=== PATIENT | male | born 1980 | race Caucasian/White ===

== ENCOUNTER 2022-09-02 10:45 | Emergency (ER) | payer OTHER ==
[2022-09-02] MEDS ORDERED: Ondansetron 4 MG Tab.DIS PO ONE (12:29)
[2022-09-02 12:43] LABS: HEMATOCRIT 44.8 % (38.4-49.7); HEMOGLOBIN 15.6 g/dL (12.9-16.9); MEAN CORPUSCULAR HEMOGLOBIN 29.3 pg (31.6-35.5); MEAN CORPUSCULAR HGB CONC 34.8 g/dL (31.6-35.5); MEAN CORPUSCULAR VOLUME 84.2 fL (81.4-99.0); RED BLOOD CELL COUNT 5.32 M/uL (4.14-5.76); WHITE BLOOD CELL COUNT,WBC 7.1 K/uL (3.2-11.0)
[2022-09-02 12:59] LABS: ANION GAP 7.3 mmol/L (5.0-14.0); CREATININE 1.1 mg/dL (0.8-1.3); EST CRCL DRUG DOSING (CG) 84.64 mL/min
== END 2022-09-02 13:43 | disposition home or self-care (01) ==
LOC: JP.ED 10:45
DX: J02.0 Streptococcal pharyngitis (principal)
CPT/HCPCS: 36415; 80048; 85027; 87651; 99284; Q0162